=== PATIENT | female | born 1950 | race Caucasian/White ===

== ENCOUNTER 2024-12-06 22:32 | Inpatient (IN) ==
[2024-12-06 23:18] LABS: Basophils # (Auto) 0.04 K/mcL (0.00-0.30); Basophils % (Auto) 0.5 % (0.0-2.0); Eosinophils # (Auto) 0.15 K/mcL (0.00-0.70); Eosinophils % (Auto) 1.9 % (0.0-7.0); Hematocrit 42.5 % (34.1-44.9); Hemoglobin 14.2 g/dL (11.2-15.7); Lymphocytes # (Auto) 1.34 K/mcL (1.50-4.80); Lymphocytes % (Auto) 17.1 % (15.5-49.0); Mean Cell Volume 98.8 fL (80.0-100.0); Mean Corpuscular HGB Conc 33.4 g/dL (31.0-36.0); Mean Platelet Volume 9.9 fL (8.8-12.5); Monocytes # (Auto) 0.69 K/mcL (0.10-0.90); Monocytes % (Auto) 8.8 % (1.0-12.0); Neutrophils % (Auto) 71.3 % (38.0-78.0); Platelet Count 215 K/mcL (140-440); Red Cell Distribution Width 12.1 % (11.5-14.5); WBC 7.8 K/mcL (4.5-11.0)
[2024-12-06 23:51] LABS: ALT/SGPT 14 U/L (<40); AST/SGOT 26 U/L (<32); Albumin 3.8 gm/dL (3.2-5.2); Albumin/Globulin Ratio 1.7 (1.0-2.3); Alkaline Phosphatase 62 U/L (39-117); Bilirubin,Total 0.3 mg/dL (0.1-1.0); Blood Urea Nitrogen 6 mg/dL (8-23); Calcium 8.8 mg/dL (8.6-10.4); Carbon Dioxide 23 mmol/L (22-30); Chloride 96 mmol/L (96-108); Globulin 2.3 gm/dL (2.2-3.7); Glomerular Filtration Rate 102; Glucose 151 mg/dL (70-105); Potassium 3.4 mmol/L (3.3-5.1); Sodium 132 mmol/L (133-145); Thyroid Stimulating Hormone 1.57 uIU/mL (0.27-5.01)
[2024-12-06] MEDS: 0.9 % SODIUM CHLORIDE 1,000 ML IV ONE (23:54)
[2024-12-06] MEDS: ACETAMINOPHEN 1,000 MG/100 ML BAG IV ONE (23:55)
[2024-12-07] MEDS: fentaNYL 100 MCG/2 ML VIAL IV ONE (01:53)
[2024-12-07] MEDS: ONDANSETRON 4 MG/2 ML VIAL IV ONE (01:53)
[2024-12-07 04:38] LABS: Appearance,Urine Clear (Clear); Bilirubin,Urine Negative (Negative); Color,Urine Yellow; Glucose,Urine (UA) Negative (Negative); Ketones,Urine Negative (Negative); Leukocyte Esterase,Urine Negative /uL (Negative); Nitrate,Urine Negative (Negative); Protein,Urine Negative (Negative); Specific Gravity,Urine 1.015 (1.000-1.035); Urine Blood Negative ery/mcL (Negative); Urobilinogen,Urine Normal
[2024-12-07] MEDS: fentaNYL 100 MCG/2 ML VIAL IV PRN (04:52)
[2024-12-07] MEDS: 0.9 % SODIUM CHLORIDE 1,000 ML IV SCH (04:54)
[2024-12-07] MEDS: ACETAMINOPHEN 1,000 MG/100 ML BAG IV SCH (04:54)
[2024-12-07 08:13] LABS: Blood Urea Nitrogen 5 mg/dL (8-23); Calcium 8.5 mg/dL (8.6-10.4); Carbon Dioxide 24 mmol/L (22-30); Chloride 101 mmol/L (96-108); Glomerular Filtration Rate 102; Glucose 102 mg/dL (70-105); Potassium 3.9 mmol/L (3.3-5.1); Sodium 134 mmol/L (133-145)
[2024-12-07] MEDS: KETOROLAC 15 MG/ML VIAL IV PRN (08:50)
[2024-12-07] MEDS: traMADol 50 MG TABLET PO PRN (08:52)
[2024-12-07] MEDS: ENOXAPARIN 40 MG/0.4 ML SYRINGE SQ SCH (08:55)
[2024-12-07 09:01] LABS: Estimated Average Glucose(eAG) 123 mg/dL; Hemoglobin A1C 5.9 % Hgb (4.0-6.0)
[2024-12-07] MEDS: HYDROmorphone 0.5 MG/0.5 ML SYRINGE IV PRN ×2 (09:11→14:10)
[2024-12-07] MEDS: ESCITALOPRAM 10 MG TABLET PO SCH (11:20)
[2024-12-07] MEDS: BUDESONIDE FORMOTEROL INH SCH (12:26)
[2024-12-07] MEDS: LACTATED RINGERS 1,000 ML IV SCH (12:34)
[2024-12-07] MEDS: POLYETHYLENE GLYCOL 3350 17 GM PACKET PO SCH (14:10)
[2024-12-07] MEDS: oxyCODONE IR 5 MG TABLET PO PRN (14:14)
[2024-12-07] MEDS: ONDANSETRON 4 MG/2 ML VIAL IV PRN (15:10)
[2024-12-07] MEDS: PROCHLORPERAZINE 10 MG/2 ML VIAL IV PRN (16:22)
[2024-12-07] MEDS: SENNOSIDES 1 TABLET PO SCH (20:52)
[2024-12-08] MEDS: LACTATED RINGERS 1,000 ML IV SCH (10:08)
[2024-12-08] MEDS: traMADol 50 MG TABLET PO PRN (20:26)
[2024-12-09] MEDS ORDERED: LIDOCAINE 2% PF 5 ML VIAL ONE (06:53)
[2024-12-09] MEDS ORDERED: ONDANSETRON 4 MG/2 ML VIAL ONE (06:53)
[2024-12-09] MEDS ORDERED: TRANEXAMIC ACID 1,000 MG/10 ML VIAL ONE (06:53)
[2024-12-09] MEDS ORDERED: ePHEDrine 50 MG/5 ML SYRINGE (ANEST) IV ONE (06:53)
[2024-12-09] MEDS ORDERED: PHENYLephrine 1 MG/10 ML SYRINGE (ANEST) ONE ×2 (06:53→09:23)
[2024-12-09] MEDS ORDERED: METOCLOPRAMIDE 10 MG/2 ML VIAL ONE (06:53)
[2024-12-09] MEDS ORDERED: DEXAMETHASONE 10 MG/ML VIAL ONE (06:53)
[2024-12-09] MEDS ORDERED: GLYCOPYRROLATE 0.2 MG/ML VIAL IV ONE (06:53)
[2024-12-09] MEDS ORDERED: PROPOFOL 200 MG/20 ML VIAL IV ONE (06:58)
[2024-12-09] MEDS ORDERED: MIDAZOLAM 2 MG/2 ML VIAL ONE (06:58)
[2024-12-09] MEDS ORDERED: KETAMINE 50 MG/ML Syringe IV ONE (06:58)
[2024-12-09] MEDS ORDERED: ROPIVACAINE HCL/PF 30 ML VIAL IJ ONE (07:00)
[2024-12-09] MEDS: ceFAZolin 2 GM in DEXTROSE 5% IN WATER 50 ML IV SCH (07:25)
[2024-12-09] MEDS: VANCOMYCIN 1 GM VIAL TOPICAL SCH (08:52)
[2024-12-09] MEDS ORDERED: FAMOTIDINE/PF 20 MG/2 ML VIAL IV ONE (09:12)
[2024-12-09] MEDS ORDERED: ROCURONIUM 10 MG/ML ML IV ONE (09:12)
[2024-12-09] MEDS ORDERED: SUGAMMADEX SODIUM 200 MG/2 ML VIAL IV ONE (09:13)
[2024-12-09] MEDS ORDERED: BENZOCAINE/MENTHOL 1 LOZENGE PO PRN (09:36)
[2024-12-09] MEDS ORDERED: IPRATROPIUM/ALBUTEROL 3 ML AMPUL.NEB NEB PRN (09:48)
[2024-12-09] MEDS: TRANEXAMIC ACID 1,000 MG/10 ML VIAL IV ONE (10:07)
[2024-12-09] MEDS: LACTATED RINGERS 1,000 ML IV SCH ×2 (11:36→12:48)
[2024-12-09] MEDS: ALBUTEROL SULFATE 2.5 MG/3 ML NEBULIZER NEB PRN (16:00)
[2024-12-09] MEDS: ceFAZolin 1 GM VIAL IV SCH (16:15)
[2024-12-09] MEDS: 0.9 % SODIUM CHLORIDE 10 ML SYRINGE IV SCH (16:15)
[2024-12-10 05:59] LABS: Basophils # (Auto) 0.01 K/mcL (0.00-0.30); Basophils % (Auto) 0.1 % (0.0-2.0); Eosinophils # (Auto) 0.01 K/mcL (0.00-0.70); Eosinophils % (Auto) 0.1 % (0.0-7.0); Hematocrit 34.7 % (34.1-44.9); Hemoglobin 11.5 g/dL (11.2-15.7); Mean Cell Volume 100.6 fL (80.0-100.0); Mean Corpuscular HGB Conc 33.1 g/dL (31.0-36.0); Mean Platelet Volume 10.2 fL (8.8-12.5); Monocytes # (Auto) 0.96 K/mcL (0.10-0.90); Neutrophils % (Auto) 72.5 % (38.0-78.0); Platelet Count 192 K/mcL (140-440); RBC 3.45 M/mcL (3.59-5.38)
[2024-12-10 06:27] LABS: ALT/SGPT 10 U/L (<40); AST/SGOT 25 U/L (<32); Albumin/Globulin Ratio 1.4 (1.0-2.3); Alkaline Phosphatase 46 U/L (39-117); Bilirubin,Direct 0.3 mg/dL (<0.3); Bilirubin,Total 0.5 mg/dL (0.1-1.0); Blood Urea Nitrogen 5 mg/dL (8-23); Calcium 8.5 mg/dL (8.6-10.4); Carbon Dioxide 29 mmol/L (22-30); Chloride 98 mmol/L (96-108); Globulin 2.1 gm/dL (2.2-3.7); Glomerular Filtration Rate 113; Glucose 99 mg/dL (70-105); Lactate Dehydrogenase 157 U/L (135-225); Phosphorous 2.9 mg/dL (2.5-4.5); Potassium 3.4 mmol/L (3.3-5.1); Sodium 135 mmol/L (133-145); Triglycerides 54 mg/dL (<150); Uric Acid 3.7 mg/dL (2.5-8.0)
[2024-12-11 12:19] VITALS: TEMP 97.6; O2SAT 93
== END 2024-12-11 13:45 | disposition home or self-care (01) | DRG 494 ==
LOC: ED 22:32 → MEDSUR 22:32
PROVIDERS: ADMIT Internal Medicine; ATTEND Internal Medicine